=== PATIENT | female | born 1980 | race Caucasian/White ===

== ENCOUNTER 2017-08-14 08:50 | Day surgery (SDC) | END 2017-08-14 17:28 | disposition home or self-care (01) ==

== ENCOUNTER 2017-08-18 10:32 | Emergency (ER) | END 2017-08-18 11:35 | disposition home or self-care (01) ==

== ENCOUNTER 2017-09-03 12:55 | Inpatient (IN) | END 2017-09-06 12:50 | disposition home or self-care (01) | DRG 902 ==

== ENCOUNTER 2017-09-12 14:00 | Outpatient (CLI) | END 2017-09-12 16:06 | disposition home or self-care (01) ==